=== PATIENT | female | born 1955 | race Caucasian/White ===

== ENCOUNTER 2022-05-23 10:36 | Outpatient (CLI) | payer MEDICARE, BC, SELFPAY ==
[2022-05-23 15:42] LABS: Chloride* 103 mmol/L (96-114); Potassium* 4.3 mmol/L (3.6-5.1); Sodium* 142 mmol/L (135-149)
[2022-05-23 15:44] LABS: Cholesterol* 162 mg/dL (90-199); Creatinine* 0.9 mg/dL (0.5-1.5); Estimated Glomerular Filt Rate 70 ml/min
[2022-05-23 15:45] LABS: Alanine Aminotransferase* 18 U/L (4-35); Blood Urea Nitrogen* 14 mg/dL (7-30); Calcium* 9.1 mg/dL (8.4-10.6); Carbon Dioxide* 30 mmol/L (20-32); Glucose* 125 mg/dL (60-115); HDL Cholesterol* 66 mg/dL (>=50); LDL Cholesterol Calculated 75 mg/dL (<100); Triglycerides* 103 mg/dL (40-149)
== END 2022-05-23 10:37 | disposition home or self-care (01) ==
PROVIDERS: PCP Family Medicine; Visit Provider Family Medicine
DX: E78.5 Hyperlipidemia, unspecified (principal); I10 Essential (primary) hypertension; E11.9 Type 2 diabetes mellitus without complications
CPT/HCPCS: 80048; 80061; 84460

== ENCOUNTER 2023-07-20 10:56 | Outpatient (CLI) | payer MEDICARE, BC, SELFPAY | END 2023-07-20 10:57 | disposition home or self-care (01) | PROVIDERS: PCP Family Medicine; Visit Provider Family Medicine | DX: E11.9 Type 2 diabetes mellitus without complications (principal); E78.2 Mixed hyperlipidemia; L65.9 Nonscarring hair loss, unspecified | CPT/HCPCS: 80048; 80061; 84443; 84460; 85025 ==

== ENCOUNTER 2024-08-29 10:07 | Outpatient (CLI) | payer MEDICARE, BC, SELFPAY | END 2024-08-29 10:08 | disposition home or self-care (01) | LOC: FBOREF 10:08 | PROVIDERS: PCP Family Medicine; Visit Provider Family Medicine | DX: E78.2 Mixed hyperlipidemia (principal); I10 Essential (primary) hypertension; E11.9 Type 2 diabetes mellitus without complications | CPT/HCPCS: 80048; 80061; 84460 ==